=== PATIENT | male | born 1945 | race Two or more races ===

== ENCOUNTER → 2017-09-17 | Emergency (ER) | payer OTHER ==
[~2017-09-17] VITALS: Ht 170.2 cm; Wt 56.7 kg
[~2017-09-17] MED LIST: AVAPRO150 MG; MILLIPRED DP5 M1; NEURONTIN600 MG; SYNTHROID75 MCG
== END | disposition home or self-care (01) ==
LOC: ER 16:31
DX: R10.31 Right lower quadrant pain (principal); R10.11 Right upper quadrant pain